=== PATIENT | male | born 1950 | race Caucasian/White ===

== ENCOUNTER 2018-07-04 11:32 | Inpatient (IN) ==
[2018-07-04] MEDS ORDERED: Isovue-370 500 ML INFUS..BTL IV ONE (11:50)
[2018-07-04] MEDS ORDERED: Piperacillin/Tazobactam 3.375 GM in 0.9 % Sodium Chloride Mini Bag 100 ML IVPB ONE (11:54)
--- NOTE | 2018-07-04 11:57 | Emergency Department Note ---
Disposition Clinical Impression: Hyponatremia, Alcohol use Pneumonia Qualifiers: Pneumonia type: due to unspecified organism Laterality: right Lung location: middle lobe of lung Qualified Code(s): J18.1 - Lobar pneumonia, unspecified organism Chest pain Qualifiers: Chest pain type: unspecified Qualified Code(s): R07.9 - Chest pain, unspecified Disposition: Admitted As Inpatient Condition: Fair Forms: ED Satisfaction Letter, Work/School Release Time of Disposition: 14:05 General Adult HPI - General Chief complaint: ED Abdominal Pain Stated complaint: "Chest pain,cough" Time Seen by Provider: 07/04/18 11:40 Nursing Notes Reviewed: Yes Vital Signs Reviewed: Yes - History of Present Illness HPI Narrative: 68-year-old male presents from home for evaluation of pain at the subxiphoid and subcostal margins. This radiates up his right axillary line. Worse with coughing. He has a productive cough with brown/green sputum. Patient underwent an EGD 4 days ago which revealed a Schatzki's ring which was dilated. Patient did have a slight cough before the procedure. This cough is persistent and worsened with the addition of the sharp stabbing subcostal pain which started after the procedure. Patient's called gastroenterology yesterday who advised to come to emergency department for an x-ray. He presented today for this evaluation as his pain is worsening. Habits: Everyday EtOH - 6-12 beers/day. Last drink was prior to the procedure. ROS: Positive: As above Negative: Fever, chills, nausea, vomiting, palpitations, unusual back pain, abdominal pain, changes in bowel or bladder habits Pain Scale: 10 - Related Data Home Medications Medication Instructions Recorded Confirmed Fish Oil/Dha/Epa [Fish Oil 1,200 1 cap PO DAILY 09/11/17 07/04/18 mg Fish Oil] Fluticasone Propionate Nasal 1 spr NS DAILY PRN 09/11/17 07/04/18 [Flonase] Folic Acid 1 mg PO DAILY 09/11/17 07/04/18 Loperamide [Imodium] 2 cap PO QID PRN 09/11/17 07/04/18 Loratadine [Allergy Relief] 10 mg PO DAILY 09/11/17 07/04/18 Multivitamin [One Daily Essential] 1 tab PO DAILY 09/11/17 07/04/18 NIFEdipine [Nifedipine ER] 30 mg PO BID 09/11/17 07/04/18 OxyCODONE/APAP 7.5/325 [Percocet 1 each PO Q6HR PRN 09/11/17 07/04/18 7.5/325 MG] Pantoprazole Sodium [Protonix] 80 mg PO DAILY 04/06/18 07/04/18 Allergies Allergy/AdvReac Type Severity Reaction Status Date / Time Varenicline [From Chantix] Allergy Mild Itching Verified 04/06/18 10:30 cephalexin [From Keflex] AdvReac Mild Diarrhea Verified 04/06/18 10:30 Cziarps-Dgw-Non Reductase AdvReac Mild Nausea Verified 04/06/18 10:30 Inhibitor [Statins] All systems ED: reviewed and negative except as stated. Review of Systems: As Per HPI Past Medical History - Past Medical History Medical history: Reports: GERD, GI bleed, hyperlipidemia, hypertension Surgical history: Reports: cholecystectomy, herniorrhaphy Psychiatric history: Reports: no psych history - Social History Smoking Status: Current every day smoker Smokeless Tobacco Status: No Alcohol use: Reports: heavy, recent Drug use: Reports: none Physical Exam Vital Signs Reviewed General: Patient is alert, oriented, and in moderate distress from his lower chest discomfort. Head: atraumatic, normocephalic Eye: normal appearance, no scleral icterus, no conjunctival injection ENT: mucous membranes moist, normal external ear exam Neck: normal inspection, trachea midline, full ROM Chest: normal inspection, symmetric chest rise. No palpable crepitus. Respiratory: Good respiratory effort. Bilateral breath sounds are clear without wheezing, crackles, or rhonchi. Cardiovascular: Regular rate and rhythm. No clicks, rubs, gallops, or murmors. Normal heart sounds. Bilateral radial pulses equal to palpation. Abdomen: Bowel sounds present normoactive x-4 quadrants. Abdomen is soft, nondistended, and nontender. No guarding or rebound. Musculoskeletal: Spontaneously moving all extremities. Skin: warm, dry, intact. Neuro: Alert and oriented x4. Sensation light touch intact. Psych: Patient's affect is appropriate for situation. Course Course Narrative: Patient had dilation of Schatzki's ring via EGD at this facility 4 days ago. Concern for possible esophageal perforation, pneumomediastinum. Also concern for possible dissection or aneurysm. Will do upright chest x-ray stat followed by CTA chest, abdomen, pelvis. Will empirically cover with vancomycin and Zosyn ; adding vancomycin because patient also has a productive cough. Blood pressure in bilateral upper extremities show a 20 point systolic difference. Bedside portable chest x-ray shows no free air under the diaphragm or widening mediastinum. Portable chest x-ray shows right-sided pneumonia. CTA chest, abdomen, pelvis show no acute vascular findings; redemonstration of right middle lobe pneumonia. Patient has mild hyponatremia. Patient's pain poorly controlled with repeated doses of Dilaudid. He is beginning to get restless; will provide 1mg IV Ativan. Abdomen/Pelvis CTA 07/04/18 11:50 IMPRESSION: 1. No acute vascular findings in the chest, abdomen, or pelvis. Specifically, no findings of central pulmonary embolism or aortic dissection. 2. Right middle lobe pneumonia with minimal involvement of the adjacent right lower lobe. This potentially could be related to aspiration given some retained material in the esophagus. 3. Circumferential wall thickening in the mid to distal thoracic esophagus potentially due to esophagitis. Please correlate with the report from the reported recent endoscopy. 4. Trace right pleural effusion. 5. Trace pelvic ascites, potentially reactive. 6. Mild to moderate bronchial wall thickening potentially due to reactive airways disease or bronchitis. D/ / Med Solorio MD / Med Solorio MD Interpreting Provider: Med Solorio MD Chest CTA 07/04/18 11:50 IMPRESSION: 1. No acute vascular findings in the chest, abdomen, or pelvis. Specifically, no findings of central pulmonary embolism or aortic dissection. 2. Right middle lobe pneumonia with minimal involvement of the adjacent right lower lobe. This potentially could be related to aspiration given some retained material in the esophagus. 3. Circumferential wall thickening in the mid to distal thoracic esophagus potentially due to esophagitis. Please correlate with the report from the reported recent endoscopy. 4. Trace right pleural effusion. 5. Trace pelvic ascites, potentially reactive. 6. Mild to moderate bronchial wall thickening potentially due to reactive airways disease or bronchitis. D/ / Med Solorio MD / Med Solorio MD Interpreting Provider: Med Solorio MD Chest X-Ray 07/04/18 11:50 IMPRESSION: 1. New right basilar airspace disease concerning for pneumonia rather than pulmonary contusion. Recommend chest radiograph in 8 weeks to confirm resolution. D/ / Hollis Garcia MD / Hollis Garcia MD Interpreting Provider: Hollis Garcia MD Vital Signs Temperature 98.2 F 07/04/18 11:34 Pulse Rate 106 07/04/18 11:34 Respiratory Rate 18 07/04/18 11:34 Blood Pressure 144/81 07/04/18 11:34 O2 Sat by Pulse Oximetry 96 07/04/18 11:34 Temperature 98.2 F 07/04/18 12:01 Pulse Rate 110 07/04/18 13:30 Respiratory Rate 18 07/04/18 13:30 Blood Pressure 148/78 07/04/18 13:30 O2 Sat by Pulse Oximetry 94 07/04/18 13:30 Oxygen Delivery Oxygen Delivery Nasal Cannula Medical Decision Making - Lab Data Result diagrams: 07/04/18 11:54 07/04/18 11:54 Lab Results 07/04/18 07/04/18 07/04/18 Range/Units 11:54 11:54 11:54 WBC 15.6 H (4.3-11.1) K/mcL RBC 3.59 L (4.19-5.50) M/mcL Hgb 11.9 L (12.9-16.9) g/dL Hct 34.1 L (37.5-50.1) % MCV 95.0 (83.0-100.0) fL MCH 33.1 (28.0-33.3) pg MCHC 34.9 (31.6-35.5) g/dL RDW 12.1 (11.5-14.5) % Plt Count 347 (140-400) K/mcL MPV 8.6 L (9.4-12.4) fL Immature Gran % 0.4 (0-4) % Seg Neutrophils % 75.9 % Lymphocytes % 13.3 % Monocytes % 9.7 % Eosinophils % 0.5 % Basophils % 0.2 % Neutrophils # 11.8 H (1.6-8.9) K/mcL Lymphocytes # 2.1 (0.6-4.6) K/mcL Monocytes # 1.5 H (0.0-1.3) K/mcL Eosinophils # 0.1 (0.0-0.6) K/mcL Basophils # 0.0 (0.0-0.2) K/mcL PT 11.9 (9.4-12.1) Seconds INR 1.1 Sodium 129 L (136-145) mEq/L Potassium 3.7 (3.5-5.1) mEq/L Chloride 93 L (98-107) mEq/L Carbon Dioxide 26 (23-29) mEq/L BUN 8 (8-23) mg/dL Creatinine 0.61 L (0.70-1.30) mg/dL Est GFR ( Amer) > 60 (> 60) Est GFR (Non-Af Amer) > 60 (> 60) BUN/Creatinine Ratio 13 (6-26) Glucose 116 H (70-105) mg/dL Calculated Osmolality 267 L (280-300) Lactic Acid (0.5-2.2) mmol/L Calcium 9.2 (8.6-10.3) mg/dL Total Bilirubin 0.8 (0.3-1.0) mg/dL Direct Bilirubin 0.3 H (0.0-0.2) mg/dL Indirect Bilirubin 0.5 (0.0-1.2) mg/dL AST 15 (13-39) Units/L ALT 12 (7-52) Units/L Alkaline Phosphatase 66 (34-104) Units/L Troponin I 0.03 (< 0.04) ng/mL Serum Total Protein 7.2 (6.4-8.9) g/dL Albumin 3.9 (3.5-5.7) g/dL Globulin 3.3 (2.4-3.5) g/dL Albumin/Globulin Ratio 1.2 (1.1-2.2) Lipase 4 L (11-82) Units/L 07/04/18 Range/Units 12:44 WBC (4.3-11.1) K/mcL RBC (4.19-5.50) M/mcL Hgb (12.9-16.9) g/dL Hct (37.5-50.1) % MCV (83.0-100.0) fL MCH (28.0-33.3) pg MCHC (31.6-35.5) g/dL RDW (11.5-14.5) % Plt Count (140-400) K/mcL MPV (9.4-12.4) fL Immature Gran % (0-4) % Seg Neutrophils % % Lymphocytes % % Monocytes % % Eosinophils % % Basophils % % Neutrophils # (1.6-8.9) K/mcL Lymphocytes # (0.6-4.6) K/mcL Monocytes # (0.0-1.3) K/mcL Eosinophils # (0.0-0.6) K/mcL Basophils # (0.0-0.2) K/mcL PT (9.4-12.1) Seconds INR Sodium (136-145) mEq/L Potassium (3.5-5.1) mEq/L Chloride (98-107) mEq/L Carbon Dioxide (23-29) mEq/L BUN (8-23) mg/dL Creatinine (0.70-1.30) mg/dL Est GFR ( Amer) (> 60) Est GFR (Non-Af Amer) (> 60) BUN/Creatinine Ratio (6-26) Glucose (70-105) mg/dL Calculated Osmolality (280-300) Lactic Acid 0.9 (0.5-2.2) mmol/L Calcium (8.6-10.3) mg/dL Total Bilirubin (0.3-1.0) mg/dL Direct Bilirubin (0.0-0.2) mg/dL Indirect Bilirubin (0.0-1.2) mg/dL AST (13-39) Units/L ALT (7-52) Units/L Alkaline Phosphatase (34-104) Units/L Troponin I (< 0.04) ng/mL Serum Total Protein (6.4-8.9) g/dL Albumin (3.5-5.7) g/dL Globulin (2.4-3.5) g/dL Albumin/Globulin Ratio (1.1-2.2) Lipase (11-82) Units/L Attestation Statement - Attestation Attestation: I, Ilir Cisneros DO, examined this patient [id number] and my medical decision-making was reviewed with Dr. Jarred Tate, Resident Physician. I agree with the documented findings, disposition and treatment plan as described except to the extent set forth below. Please see my progress notes for details.
[2018-07-04] MEDS ORDERED: *HR* HYDROmorphone (PF) 1 MG/ML SYRINGE IVP STA (12:00)
[2018-07-04] MEDS ORDERED: Pantoprazole 80 MG in 0.9 % Sodium Chloride 50 ML IVPB ONE (12:02)
--- NOTE | 2018-07-04 12:02 | Emergency Department Note ---
Disposition Clinical Impression: Pneumonia, Chest pain, Hyponatremia, Alcohol use Disposition: Admitted As Inpatient Condition: Fair Referrals: Denise Anton MD [Non-Partnered Physician] - Forms: ED Satisfaction Letter, Work/School Release Time of Disposition: 14:06 General Adult HPI - General Chief complaint: ED Abdominal Pain Stated complaint: "Chest pain,cough" Time Seen by Provider: 07/04/18 11:40 - History of Present Illness Pain Scale: 10 - Related Data Home Medications Medication Instructions Recorded Confirmed Fish Oil/Dha/Epa [Fish Oil 1,200 1 cap PO DAILY 09/11/17 04/06/18 mg Fish Oil] Fluticasone Propionate Nasal 1 spr NS DAILY PRN 09/11/17 04/06/18 [Flonase] Folic Acid 1 mg PO DAILY 09/11/17 04/06/18 Loperamide [Imodium] 2 cap PO QID 09/11/17 04/06/18 Loratadine [Allergy Relief] 10 mg PO DAILY 09/11/17 04/06/18 Multivitamin [One Daily Essential] 1 tab PO DAILY 09/11/17 04/06/18 NIFEdipine [Nifedipine ER] 30 mg PO BID 09/11/17 04/06/18 OxyCODONE/APAP 7.5/325 [Percocet 1 each PO Q6HR PRN 09/11/17 04/06/18 7.5/325 MG] Pantoprazole Sodium [Protonix] 80 mg PO DAILY 04/06/18 04/06/18 Allergies Allergy/AdvReac Type Severity Reaction Status Date / Time Varenicline [From Chantix] Allergy Mild Itching Verified 04/06/18 10:30 cephalexin [From Keflex] AdvReac Mild Diarrhea Verified 04/06/18 10:30 [id number] Reductase AdvReac Mild Nausea Verified 04/06/18 10:30 Inhibitor [Statins] Past Medical History - Past Medical History Medical history: Reports: GERD, GI bleed, hyperlipidemia, hypertension Surgical history: Reports: cholecystectomy, herniorrhaphy Psychiatric history: Reports: no psych history - Social History Smoking Status: Current every day smoker Smokeless Tobacco Status: No Alcohol use: Reports: heavy, recent Drug use: Reports: none Course Vital Signs Temperature 98.2 F 07/04/18 11:34 Pulse Rate 106 07/04/18 11:34 Respiratory Rate 18 07/04/18 11:34 Blood Pressure 144/81 07/04/18 11:34 O2 Sat by Pulse Oximetry 96 07/04/18 11:34 Temperature 100.8 F H 07/04/18 14:05 Pulse Rate 108 07/04/18 14:05 Respiratory Rate 16 07/04/18 14:05 Blood Pressure 122/90 07/04/18 14:05 O2 Sat by Pulse Oximetry 97 07/04/18 14:05 Oxygen Delivery Oxygen Delivery Nasal Cannula Medical Decision Making - Lab Data Result diagrams: 07/04/18 11:54 07/04/18 11:54 Lab Results 07/04/18 07/04/18 07/04/18 Range/Units 11:54 11:54 11:54 WBC 15.6 H (4.3-11.1) K/mcL RBC 3.59 L (4.19-5.50) M/mcL Hgb 11.9 L (12.9-16.9) g/dL Hct 34.1 L (37.5-50.1) % MCV 95.0 (83.0-100.0) fL MCH 33.1 (28.0-33.3) pg MCHC 34.9 (31.6-35.5) g/dL RDW 12.1 (11.5-14.5) % Plt Count 347 (140-400) K/mcL MPV 8.6 L (9.4-12.4) fL Immature Gran % 0.4 (0-4) % Seg Neutrophils % 75.9 % Lymphocytes % 13.3 % Monocytes % 9.7 % Eosinophils % 0.5 % Basophils % 0.2 % Neutrophils # 11.8 H (1.6-8.9) K/mcL Lymphocytes # 2.1 (0.6-4.6) K/mcL Monocytes # 1.5 H (0.0-1.3) K/mcL Eosinophils # 0.1 (0.0-0.6) K/mcL Basophils # 0.0 (0.0-0.2) K/mcL PT 11.9 (9.4-12.1) Seconds INR 1.1 Sodium 129 L (136-145) mEq/L Potassium 3.7 (3.5-5.1) mEq/L Chloride 93 L (98-107) mEq/L Carbon Dioxide 26 (23-29) mEq/L BUN 8 (8-23) mg/dL Creatinine 0.61 L (0.70-1.30) mg/dL Est GFR ( Amer) > 60 (> 60) Est GFR (Non-Af Amer) > 60 (> 60) BUN/Creatinine Ratio 13 (6-26) Glucose 116 H (70-105) mg/dL Calculated Osmolality 267 L (280-300) Lactic Acid (0.5-2.2) mmol/L Calcium 9.2 (8.6-10.3) mg/dL Total Bilirubin 0.8 (0.3-1.0) mg/dL Direct Bilirubin 0.3 H (0.0-0.2) mg/dL Indirect Bilirubin 0.5 (0.0-1.2) mg/dL AST 15 (13-39) Units/L ALT 12 (7-52) Units/L Alkaline Phosphatase 66 (34-104) Units/L Troponin I 0.03 (< 0.04) ng/mL Serum Total Protein 7.2 (6.4-8.9) g/dL Albumin 3.9 (3.5-5.7) g/dL Globulin 3.3 (2.4-3.5) g/dL Albumin/Globulin Ratio 1.2 (1.1-2.2) Lipase 4 L (11-82) Units/L 07/04/ Range/Units 12:44 WBC (4.3-11.1) K/mcL RBC (4.19-5.50) M/mcL Hgb (12.9-16.9) g/dL Hct (37.5-50.1) % MCV (83.0-100.0) fL MCH (28.0-33.3) pg MCHC (31.6-35.5) g/dL RDW (11.5-14.5) % Plt Count (140-400) K/mcL MPV (9.4-12.4) fL Immature Gran % (0-4) % Seg Neutrophils % % Lymphocytes % % Monocytes % % Eosinophils % % Basophils % % Neutrophils # (1.6-8.9) K/mcL Lymphocytes # (0.6-4.6) K/mcL Monocytes # (0.0-1.3) K/mcL Eosinophils # (0.0-0.6) K/mcL Basophils # (0.0-0.2) K/mcL PT (9.4-12.1) Seconds INR Sodium (136-145) mEq/L Potassium (3.5-5.1) mEq/L Chloride (98-107) mEq/L Carbon Dioxide (23-29) mEq/L BUN (8-23) mg/dL Creatinine (0.70-1.30) mg/dL Est GFR ( Amer) (> 60) Est GFR (Non-Af Amer) (> 60) BUN/Creatinine Ratio (6-26) Glucose (70-105) mg/dL Calculated Osmolality (280-300) Lactic Acid 0.9 (0.5-2.2) mmol/L Calcium (8.6-10.3) mg/dL Total Bilirubin (0.3-1.0) mg/dL Direct Bilirubin (0.0-0.2) mg/dL Indirect Bilirubin (0.0-1.2) mg/dL AST (13-39) Units/L ALT (7-52) Units/L Alkaline Phosphatase (34-104) Units/L Troponin I (< 0.04) ng/mL Serum Total Protein (6.4-8.9) g/dL Albumin (3.5-5.7) g/dL Globulin (2.4-3.5) g/dL Albumin/Globulin Ratio (1.1-2.2) Lipase (11-82) Units/L Attestation Statement - Attestation Attestation: I, Ilir Cisneros DO, examined this patient [id number] and my medical decision-making was reviewed with Dr. Jarred Tate, Resident Physician. I agree with the documented findings, disposition and treatment plan as described except to the extent set forth below. Please see my progress notes for details. 68-year-old male presents to the emergency room with progressively worsening pain in his chest. Patient had an EGD performed on by gastroenterology. He had pain that he describes slightly before. Progressively his become worse after the dilation of the Schatzki's ring. Patient denies any other trauma or injury. He has been taking his medications as prescribed. He is advised to go to the emergency room on Thursday but did not do so. Patient is now here in the emergency room with progressively worsening pain tachycardia and discomfort. Initial concern because of his medical history as well as the most recent surgical intervention is perforation. Patient is describing severe pain that radiates into his back. Also concerned about dissection and aneurysm. Patient has chest discomfort and pain that is worse with inspiration is positional. Cardiac etiology is also on the differential. Chest x-ray was ordered immediately in the upright chest x-ray does not show any free air underneath the diaphragm or visible signs of pneumomediastinum. Bilateral blood pressures were collected by the nursing staff there is a 20 point deficit between the right upper extremity and left upper extremity. Immediate CT angiography of the chest abdomen and pelvis will be ordered at this time to rule out dissection or aneurysm. Fluids pain medication nausea medication will be provided immediately. Patient will have EKG CT angiography was CBC chemistry troponin and BNP blood cultures lactic acid ordered at this time. First doses of IV vancomycin and Zosyn will be provided the patient with concern for possible perforation. Definitive management will be established once imaging modalities are resulted. The patient was sent over for CT angiography the chest abdomen and pelvis before the labs were collected. I reviewed labs from September 2017 that showed normal renal function. He has not had any labs since then but in light of the situation as well as the presentation and the asymmetric blood pressures the patient will be sent for definitive imaging and fluids will be provided. Disposition will most likely be admission or transfer dependent upon the findings. See detailed documentation of physical exam, medical intervention, medical decision-making and disposition in the resident physician's note. On examination his lungs do appear to be clear there is no crepitus to the chest wall there is no crackles noted on exam there is no crunching sensation noted on auscultation of the heart. Heart is tachycardic but regular. Abdomen is soft does have tenderness bilateral in the epigastrium. He has no signs or rash lesion or other trauma noted to the chest wall or abdomen this time. Disposition pending the full workup and treatment course. Pulses in the right upper and left upper extremities appear to be symmetrical in the radial distributions with no asymmetry noted at this time. We will continue to monitor closely and disposition is determined. 1205 Patient also discloses that he has a significant drinking history he stopped prior to EGD and has not drank since then. There is also concerned for esophageal varices at this point considering he did have hemoptysis that he described prior to the back and some intermittent symptoms since then. Patient will be given Protonix at this time. Octreotide will be added on after the imaging modality is completed. 1400 CT angiography the chest and abdomen does not show any acute vascular related etiology. Patient has what appears to be right middle and right lower lobe pneumonia with concern for possible aspiration since there is still fluidthe esophagus. This is consistent with the patient's most recent dilation secondary to Schatzki's ring. He has not had any emesis here. He is describing pain in his chest wall still this time. Patient is a heavy drinker so Ativan as well as repeat doses of pain medication will be ordered. Repeat EKGs were negative at this time and no signs of ischemia or myocardial infarction-like presentation. His troponin is negative and the patient has had all the symptoms for greater than 4 days. Patient is clinically stable but still having describes symptoms of pain secondary to the pneumonia. He will be admitted for antibiotic regiment and pain control. Hospitalist was contacted no other specific recommendations or concerns noted at this time.
[2018-07-04 12:07] LABS: Hematocrit 34.1 % (37.5-50.1); Hemoglobin 11.9 g/dL (12.9-16.9); Red Blood Count 3.59 M/mcL (4.19-5.50)
[2018-07-04 12:08] LABS: Basophils % 0.2 %; Eosinophils # 0.1 K/mcL (0.0-0.6); Eosinophils % 0.5 %; Immature Granulocytes % 0.4 % (0-4); Lymphocytes # 2.1 K/mcL (0.6-4.6); Lymphocytes % 13.3 %; Mean Corpuscular HGB Conc 34.9 g/dL (31.6-35.5); Mean Corpuscular Hemoglobin 33.1 pg (28.0-33.3); Mean Platelet Volume 8.6 fL (9.4-12.4); Monocytes # 1.5 K/mcL (0.0-1.3); Monocytes % 9.7 %; Neutrophils # 11.8 K/mcL (1.6-8.9); Platelet Count 347 K/mcL (140-400); Red Cell Distribution Width 12.1 % (11.5-14.5); Segmented Neutrophils % 75.9 %
[2018-07-04 12:15] LABS: INR 1.1; Prothrombin Time 11.9 Seconds (9.4-12.1)
[2018-07-04 12:31] LABS: Alanine Aminotransferase 12 Units/L (7-52); Albumin 3.9 g/dL (3.5-5.7); Albumin/Globulin Ratio 1.2 (1.1-2.2); Alkaline Phosphatase 66 Units/L (34-104); Aspartate Amino Transferase 15 Units/L (13-39); BUN/Creatinine Ratio 13 (6-26); Bilirubin,Direct 0.3 mg/dL (0.0-0.2); Bilirubin,Indirect 0.5 mg/dL (0.0-1.2); Bilirubin,Total 0.8 mg/dL (0.3-1.0); Blood Urea Nitrogen 8 mg/dL (8-23); Calcium 9.2 mg/dL (8.6-10.3); Carbon Dioxide 26 mEq/L (23-29); Chloride 93 mEq/L (98-107); Globulin 3.3 g/dL (2.4-3.5); Glucose 116 mg/dL (70-105); Lipase 4 Units/L (11-82); Osmolality,Calculated 267 (280-300); Potassium 3.7 mEq/L (3.5-5.1); Sodium 129 mEq/L (136-145); Total Protein 7.2 g/dL (6.4-8.9); eGFR For Non-African Americans > 60 (> 60)
[2018-07-04 12:32] LABS: Troponin I 0.03 ng/mL (< 0.04)
[2018-07-04] MEDS ORDERED: THIAMINE IVPB ONE (12:37)
[2018-07-04] MEDS ORDERED: FOLIC ACID IVPB ONE (12:37)
[2018-07-04] MEDS ORDERED: SODIUM CHLORIDE 0.9% IVPB ONE (12:37)
[2018-07-04] MEDS ORDERED: *HR* HYDROmorphone (PF) 1 MG/ML SYRINGE IVP ONE (13:08)
[2018-07-04] MEDS ORDERED: *HR* LORazepam 1 MG TABLET PO ONE (13:55)
[2018-07-04] MEDS ORDERED: Naloxone 0.4 MG/ML INJ IVP PRN (14:15)
[2018-07-04] MEDS ORDERED: Fluticasone Propionate Nasal 50 MCG/SPRAY BOTTLE NS PRN (14:19)
[2018-07-04] MEDS ORDERED: *HR* LORazepam 2 MG/ML VIAL IVP PRN (14:24)
[2018-07-04] MEDS ORDERED: Aminoglycoside Consult 1 EACH MC ONE (14:59)
[2018-07-04 15:14] LABS: Ethanol < 10 mg/dL (Less than 10)
--- NOTE | 2018-07-04 15:43 | Internal Med History&Physical ---
Date of Encounter: 07/04/18 Time of Encounter: 15:00 Internal Medicine - H&P: HPI Chief complaint: Coughing and right sided chest pain History of present illness: Mr. Stewart is a 68 year old male with pmh of alcohol abuse, GERD, hyperlipidemia, hypertension presenting with complaints of coughin since last week thursday which has gotten worse and is accompanied with right sided chest pain. He notes that the coughing started on thursday night but has progressively gotten worse since after the EGD; a schatzki's ring was found on EGD and dilation was performed. He complains of producing greenish brown phlegm as well. He also complains of right sided chest pain davin he has had since the procedure and has been getting progressively more severe over the last 24 hours. The pain is intermittent stabbing and radiating from the mid sternal area to the back and that's the main reason he came to the ER today. Pain is worse on inspiration and with coughing. In the ER, a chest xray, CT chest , abdomen and pelvis were performed showing a right middle lobe pneumonia and no evidence of free air in the mediastinum. He is being admitted for further management Past Med Surg Social Fam HX - Past Medical History Medical history: GERD, GI bleed, hyperlipidemia, hypertension Additional medical history: Clark dx, BPH, chronic elbow/shoulder pain, hx of alcoholism pancreatitis, hx of colon polyps Psychiatric history: no psych history - Past Surgical History Surgical History: cholecystectomy, herniorrhaphy Additional surgical history: right foot as a child, bilateral inguinal hernia repair-2008, sinus surgery-2009, EDG-04/2011, colonscopy w/ polypectomy-2007, 2014, TURP-07/2014, PE tubes-05/2015 - Social History Smoking Status: Current every day smoker Smokeless Tobacco Status: No Alcohol use: heavy, recent Drug use: none - Family History Mother Living Status: Age at : 84 Cause of : DM, alzheimers Internal Medicine - H&P: Meds Fish Oil/Dha/Epa [Fish Oil 1,200 mg Fish Oil] 1 cap PO DAILY 09/11/17 [History] Fluticasone Propionate Nasal [Flonase] 1 spr NS DAILY PRN 09/11/17 [History] Folic Acid 1 mg PO DAILY 09/11/17 [History] Loperamide [Imodium] 2 cap PO QID PRN 09/11/17 [History] Loratadine [Allergy Relief] 10 mg PO DAILY 09/11/17 [History] Multivitamin [One Daily Essential] 1 tab PO DAILY 09/11/17 [History] NIFEdipine [Nifedipine ER] 30 mg PO BID 09/11/17 [History] OxyCODONE/APAP 7.5/325 [Percocet 7.5/325 MG] 1 each PO Q6HR PRN 09/11/17 [ History] Pantoprazole Sodium [Protonix] 80 mg PO DAILY 04/06/18 [History] 3 Allergy/AdvReac Type Severity Reaction Status Date / Time Varenicline [From Chantix] Allergy Mild Itching Verified 04/06/18 10:30 cephalexin [From Keflex] AdvReac Mild Diarrhea Verified 04/06/18 10:30 Cqvleln-Kyj-Ltz Reductase AdvReac Mild Nausea Verified 04/06/18 10:30 Inhibitor [Statins] All Systems PM: A 10-system review of systems was performed and is negative for pertinent findings except as documented above in the HPI. - Constitutional Constitutional: no chills, no fever(s), no night sweats - EENT Eyes: no change in vision, no discharge, no pain, no photophobia Ears: no ear discharge, no ear pain, no tinnitus Nose, mouth and throat: no dysphagia, no nasal discharge, no neck pain, no sore throat - Cardiovascular Cardiovascular ROS IM: no chest pain, no diaphoresis, no dyspnea, no lightheadedness, no palpitations, no syncope - Respiratory Respiratory: cough, dyspnea, pain with cough, no wheezing, no excessive phlegm production - Gastrointestinal Gastrointestinal: no abdominal pain, no diarrhea, no hematemesis, no hematochezia, no melena, no nausea, no vomiting - Musculoskeletal Musculoskeletal ROS IM: no numbness, no tingling - Integumentary Integumentary IM: no rash, no unusual bruising - Neurological Neurological ROS: no confusion, no convulsions, no focal weakness, no numbness, no tingling, no tremor(s) - Hematologic/Lymphatic Hematologic/Lymphatic: no easy bruising - Constitutional Vitals: Temp Pulse Resp BP Pulse Ox 100.8 F H 108 16 122/90 97 07/04/18 14:05 07/04/18 14:05 07/04/18 14:05 07/04/18 14:05 07/04/18 14:05 Exam: moderate distress from right sided chest pain - Head Head exam: Present: atraumatic, normocephalic - Eye Eye exam: Present: PERRL, conjuntiva pink, sclera anicteric Pupils: Present: PERRL - Neck Neck exam general surgery: Present: supple, trachea midline. Absent: lymphadenopathy - Respiratory Respiratory exam: Present: CTAB. Absent: accessory muscle use, rales, rhonchi, wheezes - Cardiovascular Cardiovascular exam: Present: RRR, +S1, +S2. Absent: diastolic murmur, gallop, rubs, systolic murmur - GI/Abdominal GI/Abdominal exam: Present: normal bowel sounds, soft, no peritoneal signs. Absent: distended, tenderness - Extremities Exam Extremities exam: Present: warm, radial pulses palpable and symmetrical. Absent : calf tenderness, cyanotic, pedal edema - Neurological Exam Neurological exam: Present: CN II-XII intact, oriented X3, no focal deficits. Absent: pronater drift, facial droop, speech deficit - Skin Skin exam: Present: dry, intact Internal Med - H&P Results - Labs CBC & Chem 7: 07/04/18 11:54 07/04/18 11:54 - Assessment and plan (1) Sepsis Current Visit: Yes Status: Acute Assessment and plan: Patient came in febrile, tachycardic and with a leukocytosis of 15. chest xray shows evidence of right middle lobe pneumonia Likely secondary to aspiration pneumonia from alcohol abuse vs s/p EGD. Obtain blood cultures, urine streptocococcus and legionella antigen Will start on vanc and unasyn . Qualifiers: Sepsis type: sepsis due to unspecified organism Qualified Code(s): A41.9 - Sepsis, unspecified organism (2) Aspiration pneumonia Current Visit: Yes Status: Acute Assessment and plan: Patient came in febrile, tachycardic and with a leukocytosis of 15. chest xray shows evidence of right middle lobe pneumonia Likely secondary to aspiration pneumonia from alcohol abuse vs s/p EGD. Obtain blood cultures, urine streptocococcus and legionella antigen Will start on vanc and unasyn . Qualifiers: Lung location: middle lobe of lung Qualified Code(s): J69.0 - Pneumonitis due to inhalation of food and vomit (3) Chest pain Current Visit: Yes Status: Acute Assessment and plan: Likely pleuritc from pneumonia. CT chest and abdomen shows no evidence of free air or suggestion of esophageal perforation Gi has however been consulted in light of persistent right sided chest pain. CXR PA and lateral in am. GI has recommended keeping patient NPO in case of possible procedure Qualifiers: Chest pain type: chest pain on breathing Qualified Code(s): R07.1 - Chest pain on breathing; R07.81 - Pleurodynia (4) Hyponatremia Current Visit: Yes Status: Acute Assessment and plan: Will start on IV fluids with normal saline (5) Alcohol abuse Current Visit: Yes Status: Acute Assessment and plan: Consumes alcohol daily. Place on CIWA protocol and monitor for signs of withdrawal (6) DVT prophylaxis Current Visit: Yes Status: Acute Assessment and plan: Heparin sc - Time Spent With Patient Total time spent is greater than 50% in coordination of care (as documented) at patient's floor/unit and/or counseling patient:
[2018-07-04] MEDS ORDERED: Acetaminophen 325 MG TABLET PO PRN (15:44)
[2018-07-04] MEDS ORDERED: GI Cocktail 40 ML EACH PO ONE (15:48)
[2018-07-04] MEDS: 0.9 % Sodium Chloride 1,000 ML IVC SCH (16:34)
[2018-07-04] MEDS: *HR* Morphine 2 MG/ML SYRINGE IVP PRN ×2 (16:35→20:16)
[2018-07-04] MEDS: Thiamine (B-1) 100 MG, Folic Acid 1 MG, MVI, adult with vitamin K 10 ML in 0.9 % Sodi... IVPB SCH (17:23)
[2018-07-04] MEDS: Ampicillin/Sulbactam 3,000 MG in 0.9 % Sodium Chloride Mini Bag 100 ML IVPB SCH (20:01)
[2018-07-04] MEDS: NIFEdipine XL (24 HR) 30 MG TAB.ER.24 PO SCH (20:15)
[2018-07-04 21:52] LABS: Bilirubin,Urine Negative (Negative); Blood,Urine Negative (Negative); Clarity,Urine Clear (Clear); Color,Urine Yellow (Yellow); Glucose,Urine (UA) Normal (Normal); Ketones,Urine Trace mg/dL (Negative); Leukocyte Esterase,Urine Negative (Negative); Nitrite,Urine Negative (Negative); PH,Urine 7.5 pH Units (5.0-8.0); Protein,Urine Negative (Neg-Trace); Specific Gravity,Urine 1.022 (1.010-1.025); Urobilinogen,Urine Normal (Normal)
[2018-07-04] MEDS ORDERED: OXYCODONE Oral CONC 10 MG/0.5 ML ORAL.SYG SL PRN (23:40)
[2018-07-05] MEDS: Ipratropium/Albuterol Neb 3 ML IH SCH ×7 (00:04→23:07)
[2018-07-05] MEDS: 0.9 % Sodium Chloride 1,000 ML IVC SCH (00:23)
[2018-07-05] MEDS: Pantoprazole 40 MG VIAL IVP SCH ×4 (00:23→17:03)
[2018-07-05] MEDS: *HR* Morphine 2 MG/ML SYRINGE IVP PRN ×2 (00:23→04:38)
[2018-07-05] MEDS: Ampicillin/Sulbactam 3,000 MG in 0.9 % Sodium Chloride Mini Bag 100 ML IVPB SCH ×4 (01:29→22:43)
[2018-07-05 04:26] LABS: Basophils % 0.3 %; Eosinophils # 0.2 K/mcL (0.0-0.6); Eosinophils % 1.4 %; Hemoglobin 11.3 g/dL (12.9-16.9); Immature Granulocytes % 0.4 % (0-4); Lymphocytes % 14.3 %; Mean Corpuscular HGB Conc 34.2 g/dL (31.6-35.5); Mean Corpuscular Hemoglobin 32.9 pg (28.0-33.3); Mean Corpuscular Volume 96.2 fL (83.0-100.0); Mean Platelet Volume 9.5 fL (9.4-12.4); Monocytes # 1.4 K/mcL (0.0-1.3); Monocytes % 9.8 %; Neutrophils # 10.3 K/mcL (1.6-8.9); Platelet Count 304 K/mcL (140-400); Red Blood Count 3.43 M/mcL (4.19-5.50); Red Cell Distribution Width 12.3 % (11.5-14.5); Segmented Neutrophils % 73.8 %
[2018-07-05 04:47] LABS: BUN/Creatinine Ratio 11 (6-26); Blood Urea Nitrogen 6 mg/dL (8-23); Calcium 8.6 mg/dL (8.6-10.3); Carbon Dioxide 24 mEq/L (23-29); Chloride 97 mEq/L (98-107); Glucose 84 mg/dL (70-105); Magnesium 1.9 mg/dL (1.6-2.6); Osmolality,Calculated 267 (280-300); Phosphorous 2.7 mg/dL (2.7-4.5); Potassium 3.2 mEq/L (3.5-5.1); Sodium 130 mEq/L (136-145); eGFR For Non-African Americans > 60 (> 60)
--- NOTE | 2018-07-05 07:22 | Internal Med Progress Note ---
Hospitalist Progress Note - Encounter Date of Encounter: 07/05/18 Time of Encounter: 07:00 - Exam Vitals: Temp Pulse Resp BP Pulse Ox 99.8 F H 110 20 124/62 94 07/05/18 04:28 07/05/18 04:28 07/05/18 04:37 07/05/18 04:28 07/05/18 04:37 Exam: moderate distress from right sided chest pain - Assessment and Plan (1) Sepsis Current Visit: Yes Status: Acute Assessment and Plan: Patient came in febrile, tachycardic and with a leukocytosis of 15. chest xray shows evidence of right middle lobe pneumonia Likely secondary to aspiration pneumonia from alcohol abuse vs s/p EGD. Urine streptocococcus and legionella antigen negative. Blood cultures pending Continue on unasyn (2) Aspiration pneumonia Current Visit: Yes Status: Acute Assessment and Plan: Patient came in febrile, tachycardic and with a leukocytosis of 15. chest xray shows evidence of right middle lobe pneumonia Likely secondary to aspiration pneumonia from alcohol abuse vs s/p EGD. Continue unasyn . (3) Chest pain Current Visit: Yes Status: Acute Assessment and Plan: Likely pleuritc from pneumonia. CT chest and abdomen shows no evidence of free air or suggestion of esophageal perforation Gi has however been consulted in light of persistent right sided chest pain s/p endoscopy to r/o perforation. CXR showed no evidence of pneumomediastinum Pain likely secondary to esophagitis. Carafate has been added to regimen and pain control PRN (4) Hyponatremia Current Visit: Yes Status: Acute Assessment and Plan: Will start on IV fluids with normal saline (5) Alcohol abuse Current Visit: Yes Status: Acute Assessment and Plan: Consumes alcohol daily. Place on CIWA protocol and monitor for signs of withdrawal (6) Hypokalemia Current Visit: Yes Status: Acute Assessment and Plan: Replaced (7) DVT prophylaxis Current Visit: Yes Status: Acute Assessment and Plan: Heparin sc - Time Spent with Patient Total time spent is greater than 50% in coordination of care (as documented) at patient's floor/unit and/or counseling patient: Internal Medicine: Result - Labs CBC & Chem 7: 07/05/18 03:57 07/05/18 03:57 Labs: Short CBC 07/05/18 Range/Units 03:57 WBC 13.9 H (4.3-11.1) K/mcL Hgb 11.3 L (12.9-16.9) g/dL Hct 33.0 L (37.5-50.1) % Plt Count 304 (140-400) K/mcL Neutrophils # 10.3 H (1.6-8.9) K/mcL BMP 07/05/18 03:57 Sodium 130 L Potassium 3.2 L Chloride 97 L Carbon Dioxide 24 BUN 6 L Creatinine 0.56 L Glucose 84 Calcium 8.6 Urine 07/04/18 Range/Units 21:00 Urine Color Yellow (Yellow) Urine Clarity Clear (Clear) Urine pH 7.5 (5.0-8.0) pH Units Ur Specific Thurman 1.022 (1.010-1.025) Urine Protein Negative (Neg-Trace) mg/dL Urine Glucose (UA) Normal (Normal) mg/dL - ABG Interpretation ABG results: PT/INR, D-dimer PT 11.9 Seconds (9.4-12.1) 07/04/18 11:54 Consult Discharge Plan - Plan Referrals: Denise Anton MD [Primary Care Provider] - (1) Sepsis Qualifiers: Sepsis type: sepsis due to unspecified organism Qualified Code(s): A41.9 - Sepsis, unspecified organism (2) Aspiration pneumonia Qualifiers: Lung location: middle lobe of lung (3) Chest pain Qualifiers: Chest pain type: chest pain on breathing Qualified Code(s): R07.1 - Chest pain on breathing; R07.81 - Pleurodynia
[2018-07-05] MEDS ORDERED: *HR* LORazepam 2 MG/ML VIAL IVP PRN ×2 (08:17)
[2018-07-05] MEDS: OXYCODONE Oral CONC 10 MG/0.5 ML ORAL.SYG SL PRN ×2 (08:33→21:06)
[2018-07-05] MEDS ORDERED: DHA PO SCH (09:00)
[2018-07-05] MEDS ORDERED: EPA PO SCH (09:00)
[2018-07-05] MEDS ORDERED: Folic Acid 1 MG TABLET PO SCH (09:00)
[2018-07-05] MEDS ORDERED: FISH OIL PO SCH (09:00)
[2018-07-05] MEDS: Multivit/Ca/Min/Fe/FA 1 TAB TABLET PO SCH (10:02)
[2018-07-05] MEDS: NIFEdipine XL (24 HR) 30 MG TAB.ER.24 PO SCH ×2 (10:02→21:06)
[2018-07-05] MEDS: Potassium Chloride Elixir 20 MEQ/15 ML UDC PO SCH ×2 (10:02→12:39)
[2018-07-05] MEDS: *HR* OxyCODONE/APAP 7.5/325 TABLET PO PRN (10:03)
--- NOTE | 2018-07-05 11:57 | Gastroenterology Consult Note ---
<Med Shabazz Arias - Last Filed: 07/05/18 11:55> Date of Encounter: 07/05/18 Time of Encounter: 10:30 - Assessment and plan (1) Chest pain Current Visit: Yes Status: Acute Assessment and plan: Likely secondary to pneumonia. CT chest and abdomen shows no evidence of free air or suggestion of esophageal perforation but did show a right middle lobe pneumonia. EGD completed 07/01 with esophageal dilation, could have caused some esophagitis. Start Carafate and continue PPI. CXR this AM shows new right lower lung pulmonary opacity may represent atelectasis, pneumonia, aspiration, and/or pleural effusion, small right pleural effusion. Qualifiers: Chest pain type: chest pain on breathing Qualified Code(s): R07.1 - Chest pain on breathing; R07.81 - Pleurodynia (2) Pneumonia Current Visit: Yes Status: Acute Assessment and plan: Management per primary team. Qualifiers: Pneumonia type: due to unspecified organism Laterality: right Lung location: middle lobe of lung Qualified Code(s): J18.1 - Lobar pneumonia, unspecified organism - Time Spent With Patient Total time spent is greater than 50% in coordination of care (as documented) at patient's floor/unit and/or counseling patient: GI History of Present Illness - Data of Consult Patient: known to practice within the last 3 years Consult date: 07/05/18 Requesting Physician: Miles Mcintyre DO - Consult Narrative Reason for consult: chest pain, s/p endoscopy History of present illness: Mr. Stewart is a 68 year old male with PMHx of GERD, GI bleed, HLD, HTN, alcohol abuse who presented with c/o cough and right sided chest pain that started 06/30 and has worsened since his EGD on 07/01. EGD showed benign- appearing esophageal stenosis which was dilated. The right sided chest pain started after the procedure and has been getting progressively more severe over the last 24 hours. The pain is intermittent stabbing and radiating from the mid sternal area to the back. CT chest and abdomen shows no evidence of free air or suggestion of esophageal perforation but did show a right middle lobe pneumonia. Procedures: EGD 07/01/2018 Dr. Nunez: Benign-appearing esophageal stenosis-dilated , otherwise normal. Awaiting pathology. Colonoscopy 07/03/2016 Dr. Nunez: Diverticulosis, internal hemorrhoids, 6 mm tubular adenoma, repeat 5 years. EGD 01/21/2016 Dr. Nunez: Gastritis, dilation of entire esophagus. EGD 11/20/2015 Dr. Nunez: Benign-appearning esophageal stenosis-dilated, LA grade D reflux esophagitis, Duffy's esophagus. NSAIDs: None Anticoagulation: None Past Med Surg Social Fam HX - Past Medical History Medical history: GERD, GI bleed, hyperlipidemia, hypertension Additional medical history: Clark dx, BPH, chronic elbow/shoulder pain, hx of alcoholism pancreatitis, hx of colon polyps Psychiatric history: no psych history - Past Surgical History Surgical History: cholecystectomy, herniorrhaphy Additional surgical history: right foot as a child, bilateral inguinal hernia repair-2008, sinus surgery-2009, EDG-04/2011, colonscopy w/ polypectomy-2007, 2014, TURP-07/2014, PE tubes-05/2015 - Social History Smoking Status: Current every day smoker Smokeless Tobacco Status: No Alcohol use: heavy, recent Drug use: none - Family History Mother Living Status: Age at : 84 Cause of : DM, alzheimers - Gastrointestinal Gastrointestinal: Present: as per HPI - Constitutional Constitutional: as per HPI - EENT Eyes: as per HPI Ears: Present: as per HPI Nose, mouth and throat: Present: as per HPI - Cardiovascular Cardiovascular ROS: Present: as per HPI - Respiratory Respiratory IM: Present: as per HPI - Genitourinary Genitourinary: Absent: change in color, Urinary frequency - Neurological ROS Neurological GI: Present: as per HPI - Hematologic/Lymphatic Hematologic/Lymphatic pediatric: Present: as per HPI - Musculoskeletal Musculoskeletal ROS GI: Present: as per HPI - Integumentary Integumentary GI: Present: as per HPI - Psychiatric ROS Psychiatric GI: Present: as per HPI - Endocrine Endocrine IM: Present: as per HPI - Constitutional Vitals: Temp Pulse Resp BP Pulse Ox 98.1 F 97 18 132/73 97 07/05/18 11:15 07/05/18 11:15 07/05/18 11:47 07/05/18 11:15 07/05/18 11:47 General appearance: Present: cooperative, A&O X 3, no acute distress, answers questions appropriately - Head Head exam: Present: atraumatic, normocephalic - Eye Eye exam: Present: normal appearance, sclera anicteric - ENT ENT exam: Present: mucous membranes dry - Neck Neck exam general surgery: Present: normal inspection, trachea midline - Respiratory Respiratory exam: Present: rhonchi, wheezes. Absent: CTAB - Cardiovascular Cardiovascular exam: Present: RRR, +S1, +S2 - GI/Abdominal GI/Abdominal exam: Present: soft, no peritoneal signs. Absent: distended, firm , guarding, tenderness - Rectal Rectal exam: Present: deferred - Extremities Exam Extremities exam: Present: warm - Neurological Exam Neurological exam: Present: no focal deficits - Psychiatric Psychiatric exam: Present: normal affect, normal mood - Skin Skin exam: Present: dry, intact, normal color, warm Results - Labs CBC & Chem 7: 07/05/18 03:57 07/05/18 03:57 Labs: Last Result Calcium 8.6 mg/dL (8.6-10.3) 07/05/18 03:57 Troponin I 0.03 ng/mL (< 0.04) 07/04/18 11:54 Entire Visit Hgb 11.3 g/dL (12.9-16.9) L 07/05/18 03:57 Hct 33.0 % (37.5-50.1) L 07/05/18 03:57 PT 11.9 Seconds (9.4-12.1) 07/04/18 11:54 Total Bilirubin 0.8 mg/dL (0.3-1.0) 07/04/18 11:54 AST 15 Units/L (13-39) 07/04/18 11:54 ALT 12 Units/L (7-52) 07/04/18 11:54 Lipase 4 Units/L (11-82) L 07/04/18 11:54 - ABG ABG results: PT/INR, D-dimer PT 11.9 Seconds (9.4-12.1) 07/04/18 11:54 - Impressions Impressions Chest X-Ray 07/05/18 07:00 IMPRESSION: New right lower lung pulmonary opacity may represent atelectasis, pneumonia, aspiration, and/or pleural effusion. Small right pleural effusion. Recommend radiographic follow-up to complete resolution. No radiographic evidence of pneumothorax or pneumomediastinum. D/ / 07/05/2018 09:03:30 Adonis Mccarthy MD / Dipika Larry Interpreting Provider: Adonis Mccarthy MD Consult Discharge Plan - Plan Referrals: Denise Anton MD [Primary Care Provider] - <Denise Nunez - Last Filed: 07/05/18 18:21> Date of Encounter: 07/05/18 Time of Encounter: 14:00 - Time Spent With Patient Total time spent is greater than 50% in coordination of care (as documented) at patient's floor/unit and/or counseling patient: GI History of Present Illness - Data of Consult Requesting Physician: Miles Mcintyre DO - Consult Narrative History of present illness: Mr. Stewart is a 68 year old male - Constitutional Vitals: Temp Pulse Resp BP Pulse Ox 100.1 F H 108 20 126/72 92 07/05/18 17:17 07/05/18 17:17 07/05/18 17:17 07/05/18 17:17 07/05/18 17:17 Results - Labs CBC & Chem 7: 07/05/18 03:57 07/05/18 03:57 Labs: Last Result Calcium 8.6 mg/dL (8.6-10.3) 07/05/18 03:57 Troponin I 0.03 ng/mL (< 0.04) 07/04/18 11:54 Entire Visit Hgb 11.3 g/dL (12.9-16.9) L 07/05/18 03:57 Hct 33.0 % (37.5-50.1) L 07/05/18 03:57 PT 11.9 Seconds (9.4-12.1) 07/04/18 11:54 Total Bilirubin 0.8 mg/dL (0.3-1.0) 07/04/18 11:54 AST 15 Units/L (13-39) 07/04/18 11:54 ALT 12 Units/L (7-52) 07/04/18 11:54 Lipase 4 Units/L (11-82) L 07/04/18 11:54 - ABG ABG results: PT/INR, D-dimer PT 11.9 Seconds (9.4-12.1) 07/04/18 11:54 - Impressions Impressions Chest X-Ray 07/05/18 07:00 IMPRESSION: New right lower lung pulmonary opacity may represent atelectasis, pneumonia, aspiration, and/or pleural effusion. Small right pleural effusion. Recommend radiographic follow-up to complete resolution. No radiographic evidence of pneumothorax or pneumomediastinum. D/ / 07/05/2018 09:03:30 Adonis Mccarthy MD / Dipika Larry Interpreting Provider: Adonis Mccarthy MD - Attending Attestation I have personally performed a face to face evaluation on this patient. I have reviewed and agree with the care plan. History and Exam by me shows: Patient seen at the bedside denies any epigastric pain on examination epigastrium is benign. Assessment patient with the pneumonia. Patient is status post dilation last week for dysphagia and CT scan is showing some distal esophagus mild taking that could be post-dilation. Per patient he is swallowing fine. Recommendation: PPI and some oral Carafate for 2-4 weeks. Management of pneumonia as per primary team
[2018-07-05] MEDS: *HR* FentaNYL (PF) 100 MCG/2 ML VIAL IVP PRN ×2 (12:39→17:09)
[2018-07-05] MEDS: Thiamine (B-1) 100 MG, Folic Acid 1 MG, MVI, adult with vitamin K 10 ML in 0.9 % Sodi... IVPB SCH (17:03)
[2018-07-06] MEDS: Ampicillin/Sulbactam 3,000 MG in 0.9 % Sodium Chloride Mini Bag 100 ML IVPB SCH ×4 (02:33→20:47)
[2018-07-06] MEDS: Ipratropium/Albuterol Neb 3 ML IH SCH ×6 (03:39→23:05)
[2018-07-06] MEDS: OXYCODONE Oral CONC 10 MG/0.5 ML ORAL.SYG SL PRN (03:52)
[2018-07-06 07:51] LABS: Basophils % 0.3 %; Eosinophils # 0.2 K/mcL (0.0-0.6); Hematocrit 28.4 % (37.5-50.1); Immature Granulocytes % 0.3 % (0-4); Lymphocytes # 1.3 K/mcL (0.6-4.6); Lymphocytes % 9.1 %; Mean Corpuscular HGB Conc 35.2 g/dL (31.6-35.5); Mean Corpuscular Volume 93.7 fL (83.0-100.0); Mean Platelet Volume 9.8 fL (9.4-12.4); Monocytes # 1.1 K/mcL (0.0-1.3); Monocytes % 7.5 %; Platelet Count 277 K/mcL (140-400); Red Blood Count 3.03 M/mcL (4.19-5.50); Red Cell Distribution Width 12.3 % (11.5-14.5); Segmented Neutrophils % 81.8 %
[2018-07-06 08:08] LABS: BUN/Creatinine Ratio 13 (6-26); Blood Urea Nitrogen 7 mg/dL (8-23); Calcium 8.5 mg/dL (8.6-10.3); Carbon Dioxide 25 mEq/L (23-29); Chloride 94 mEq/L (98-107); Glucose 145 mg/dL (70-105); Magnesium 1.8 mg/dL (1.6-2.6); Osmolality,Calculated 267 (280-300); Phosphorous 2.4 mg/dL (2.7-4.5); Potassium 3.2 mEq/L (3.5-5.1); Sodium 128 mEq/L (136-145); eGFR For Non-African Americans > 60 (> 60)
[2018-07-06] MEDS: NIFEdipine XL (24 HR) 30 MG TAB.ER.24 PO SCH ×2 (08:31→20:49)
[2018-07-06] MEDS: Multivit/Ca/Min/Fe/FA 1 TAB TABLET PO SCH (08:31)
[2018-07-06] MEDS: *HR* OxyCODONE/APAP 7.5/325 TABLET PO PRN (08:48)
--- NOTE | 2018-07-06 09:09 | Internal Med Progress Note ---
Hospitalist Progress Note - Encounter Date of Encounter: 07/06/18 Time of Encounter: 09:07 - Subjective Interval History: Patient seen and evaluated at bedside, reports that he still does not think he is back to his baseline. Feels weak, continues to have productive cough. Denies chest pain, but report lower back and right shoulder pain. - Exam Vitals: Temp Pulse Resp BP Pulse Ox 99.8 F H 107 18 113/56 91 07/06/18 07:42 07/06/18 07:42 07/06/18 07:42 07/06/18 07:42 07/06/18 07:42 Exam: General: Alert and oriented 4. In no acute distress. Cardiovascular: RRR, Normal S1 & S2, no rubs, murmurs or gallops. No JVD. Lungs: Clear to auscultation bilaterally, no wheezes, rales or crackles. Abdomen: Obese, Soft, non-tender, no rigidity. NABS in all 4 quadrants. Extremities: No edema in the lower extremity bilaterally. Neurological:Normal cognition and motor skills. CN II-XII intact. Rest of the physical exam is non contributory - Assessment and Plan (1) Aspiration pneumonia Current Visit: Yes Status: Acute Assessment and Plan: CTA chest: IMPRESSION: 1. No acute vascular findings in the chest, abdomen, or pelvis. Specifically, no findings of central pulmonary embolism or aortic dissection. 2. Right middle lobe pneumonia with minimal involvement of the adjacent right lower lobe. This potentially could be related to aspiration given some retained material in the esophagus. 3. Circumferential wall thickening in the mid to distal thoracic esophagus potentially due to esophagitis. Please correlate with the report from the reported recent endoscopy. 4. Trace right pleural effusion. 5. Trace pelvic ascites, potentially reactive. 6. Mild to moderate bronchial wall thickening potentially due to reactive airways disease or bronchitis. Possible aspiration Pneumonia. Plan patient on ampicillin/sulbactam Will add levofloxacin 750mg/PO daily F/U blood culture final report for antibioitcs adjustment if needed Urine for atypical organism negative. Incentive spirometry (2) Chest pain Current Visit: Yes Status: Resolved Assessment and Plan: Chest pain presentation possible secondary to Esophagitis following EGD. EGD completed 07/01 with esophageal dilation, could have caused some esophagitis. Plan GI consulted recommended PPI and Sulcrafate (3) Hyponatremia Current Visit: Yes Status: Acute Assessment and Plan: Plan: Fluids restriction to 1.5 litters a day Will start patient on NS low dose at 50mls/hr for 24 hours (4) Alcohol abuse Current Visit: Yes Status: Acute Assessment and Plan: ON lorazepam PRN for DT like symptoms. (5) Sepsis Current Visit: Yes Status: Resolved Assessment and Plan: Sepsis picture on presentation resolving. Continue plan of care as per #1 problem (6) Hypokalemia Current Visit: Yes Status: Acute Assessment and Plan: Electrolyte replaced. (7) Hypertension Current Visit: Yes Status: Acute Assessment and Plan: BP well controlled. Patient on Nifedipine 30mg/PO BID. Continue current treatment. Will add low dose carvedilol. (8) Respiratory failure Current Visit: Yes Status: Acute Assessment and Plan: Possible secondary to pneumonia. CTA done r/o PE. Patient continues to require O2 by nasal canula. On 5 litters. Continue O2 by nasal cannula, titrate for O2Sat >92% Continue Nebs PRN. (9) DVT prophylaxis Current Visit: Yes Status: Acute Assessment and Plan: Patient with a Hx of GI bleed. No active signs of bleeding. Will add Heparin 5000 units BID for DVT prophylaxis. - Summary of Assessment and Plan Summary of Assessment and Plan: Patient to remain in the hospital to continue IV antibiotics for at least 24-48 more hours. - Time Spent with Patient Total time spent is greater than 50% in coordination of care (as documented) at patient's floor/unit and/or counseling patient: 25 - 35 minutes Plan of Care Discussed with: patient (the nurse.) Internal Medicine: Result - Labs CBC & Chem 7: 07/06/18 07:23 07/06/18 07:23 Labs: Short CBC 07/06/18 Range/Units 07:23 WBC 14.6 H (4.3-11.1) K/mcL Hgb 10.0 L (12.9-16.9) g/dL Hct 28.4 L (37.5-50.1) % Plt Count 277 (140-400) K/mcL Neutrophils # 12.0 H (1.6-8.9) K/mcL BMP 07/06/18 07:23 Sodium 128 L Potassium 3.2 L Chloride 94 L Carbon Dioxide 25 BUN 7 L Creatinine 0.53 L Glucose 145 H Calcium 8.5 L - ABG Interpretation ABG results: PT/INR, D-dimer PT 11.9 Seconds (9.4-12.1) 07/04/18 11:54 - Impressions Impressions Chest X-Ray 07/05/18 07:00 IMPRESSION: 1. New right lower lung pulmonary opacity may represent atelectasis, pneumonia, aspiration, and/or pleural effusion. Small right pleural effusion. 2. No radiographic evidence of pneumothorax or pneumomediastinum. RECOMMENDATION: Recommend radiographic follow-up to complete resolution. D/ / 07/05/2018 09:03:30 Adonis Mccarthy MD / Dipika Larry Interpreting Provider: Adonis Mccarthy MD Consult Discharge Plan - Plan Referrals: Denise Anton MD [Primary Care Provider] - (1) Aspiration pneumonia Qualifiers: Lung location: middle lobe of lung (2) Chest pain Qualifiers: Chest pain type: chest pain on breathing Qualified Code(s): R07.1 - Chest pain on breathing; R07.81 - Pleurodynia (5) Sepsis Qualifiers: Sepsis type: sepsis due to unspecified organism Qualified Code(s): A41.9 - Sepsis, unspecified organism (7) Hypertension Qualifiers: Hypertension type: unspecified Qualified Code(s): I10 - Essential (primary) hypertension (8) Respiratory failure Qualifiers: Chronicity: acute Respiratory failure complication: hypoxia Qualified Code(s ): J96.01 - Acute respiratory failure with hypoxia
[2018-07-06] MEDS: 0.9 % Sodium Chloride 1,000 ML IVC SCH (11:01)
[2018-07-06] MEDS: levoFLOXacin 750 MG TABLET PO SCH (11:02)
[2018-07-06] MEDS: Pantoprazole 40 MG VIAL IVP SCH (17:31)
[2018-07-06] MEDS: Thiamine (B-1) 100 MG, Folic Acid 1 MG, MVI, adult with vitamin K 10 ML in 0.9 % Sodi... IVPB SCH (17:31)
[2018-07-06] MEDS: *HR* FentaNYL (PF) 100 MCG/2 ML VIAL IVP PRN (17:42)
[2018-07-06] MEDS: *HR* Heparin 5,000 UNIT/ML VIAL SQ SCH (17:45)
[2018-07-06] MEDS: Sennosides/Docusate Sodium TABLET PO SCH (20:49)
[2018-07-07] MEDS: Ampicillin/Sulbactam 3,000 MG in 0.9 % Sodium Chloride Mini Bag 100 ML IVPB SCH ×4 (02:12→20:56)
[2018-07-07] MEDS: Ipratropium/Albuterol Neb 3 ML IH SCH ×6 (04:19→23:05)
[2018-07-07] MEDS: Pantoprazole 40 MG VIAL IVP SCH (05:27)
[2018-07-07] MEDS: 0.9 % Sodium Chloride 1,000 ML IVC SCH (05:28)
[2018-07-07] MEDS: *HR* Heparin 5,000 UNIT/ML VIAL SQ SCH ×2 (05:28→16:06)
[2018-07-07 07:12] LABS: Basophils % 0.2 %; Eosinophils # 0.1 K/mcL (0.0-0.6); Eosinophils % 0.8 %; Hematocrit 27.4 % (37.5-50.1); Hemoglobin 9.6 g/dL (12.9-16.9); Immature Granulocytes % 0.5 % (0-4); Lymphocytes # 1.3 K/mcL (0.6-4.6); Lymphocytes % 9.6 %; Mean Corpuscular Hemoglobin 32.7 pg (28.0-33.3); Mean Corpuscular Volume 93.2 fL (83.0-100.0); Mean Platelet Volume 10.5 fL (9.4-12.4); Monocytes # 1.1 K/mcL (0.0-1.3); Monocytes % 8.4 %; Neutrophils # 10.5 K/mcL (1.6-8.9); Platelet Count 171 K/mcL (140-400); Red Blood Count 2.94 M/mcL (4.19-5.50); Red Cell Distribution Width 12.3 % (11.5-14.5); Segmented Neutrophils % 80.5 %
[2018-07-07 07:27] LABS: Magnesium 1.8 mg/dL (1.6-2.6); Phosphorous 2.5 mg/dL (2.7-4.5)
[2018-07-07 07:29] LABS: BUN/Creatinine Ratio 12 (6-26); Blood Urea Nitrogen 6 mg/dL (8-23); Calcium 8.4 mg/dL (8.6-10.3); Carbon Dioxide 24 mEq/L (23-29); Chloride 96 mEq/L (98-107); Glucose 116 mg/dL (70-105); Osmolality,Calculated 263 (280-300); Potassium 3.5 mEq/L (3.5-5.1); Sodium 127 mEq/L (136-145); eGFR For Non-African Americans > 60 (> 60)
[2018-07-07] MEDS: NIFEdipine XL (24 HR) 30 MG TAB.ER.24 PO SCH ×2 (09:32→20:56)
[2018-07-07] MEDS: *HR* OxyCODONE/APAP 7.5/325 TABLET PO PRN ×2 (09:32→16:08)
[2018-07-07] MEDS: Thiamine (B-1) 100 MG TABLET PO SCH (09:32)
[2018-07-07] MEDS: Sennosides/Docusate Sodium TABLET PO SCH ×2 (09:33→20:56)
[2018-07-07] MEDS: levoFLOXacin 750 MG TABLET PO SCH (09:33)
[2018-07-07] MEDS: Folic Acid 1 MG TABLET PO SCH (09:33)
[2018-07-07] MEDS: Multivit/Ca/Min/Fe/FA 1 TAB TABLET PO SCH (09:33)
--- NOTE | 2018-07-07 11:15 | Internal Med Progress Note ---
Hospitalist Progress Note - Encounter Date of Encounter: 07/07/18 Time of Encounter: 11:13 - Subjective Interval History: Seen and evaluated and evaluated at bedside, patient reports that his breathing has improved, he feels less short of breath. Denies chest pain, nausea or vomiting. Denies tremors, intentional or resting. - Exam Vitals: Temp Pulse Resp BP Pulse Ox 98.3 F 99 18 119/67 89 07/07/18 07:30 07/07/18 07:30 07/07/18 11:02 07/07/18 07:30 07/07/18 11:02 Exam: General: Alert and oriented 4. In no acute distress. Cardiovascular: RRR, Normal S1 & S2, no rubs, murmurs or gallops. No JVD. Lungs: Clear to auscultation bilaterally, no wheezes, rales or crackles. Abdomen: Obese, Soft, non-tender, no rigidity. NABS in all 4 quadrants. Extremities: No edema in the lower extremity bilaterally. Neurological:Normal cognition and motor skills. CN II-XII intact. Rest of the physical exam is non contributory - Assessment and Plan (1) Respiratory failure Current Visit: Yes Status: Acute Assessment and Plan: Patient still on 5 litters of O2 by nasal cannula. a possible contributing factor for this patient respiratory symptoms could be in part to COPD? as patient has a long standing history of tobacco abuse, smokes about a pack per day for a "long" time. Continue Nebs Scheduled, titrate O2 to 2 litters. Will attempt to wean off Oxygen today. No steroids due to patient recent Hx of GI bleeding. (2) Aspiration pneumonia Current Visit: Yes Status: Acute Assessment and Plan: Reports that his breathing has significantly improved, but still not back to his baseline Plan To continue IV antibioitcs for 24 more hours Discontinue Levofloxacin as Atypical organism were negative Incentive spirometry (3) Chest pain Current Visit: Yes Status: Resolved Assessment and Plan: Possible secondary to esophagitis from EGD. GI recommended PPI plus scrafate. Change Pantoprazole to 40mg/PO daily. (4) Hyponatremia Current Visit: Yes Status: Acute Assessment and Plan: Possible secondary to SIADH due to Pneumonia?. No neurological abnormalities Plan Serum and Urine Osm Patient on NS@50mls/hr Continue with fluid restriction to 1.5 litters a day. (5) Alcohol abuse Current Visit: Yes Status: Acute Assessment and Plan: NO DT like symptoms. Patient on Lorazepam 2mg/IV Q4HR PRN for DT like symptoms. Started on carvedilol 12.5mg/PO BID (6) Hypertension Current Visit: Yes Status: Acute (7) DVT prophylaxis Current Visit: Yes Status: Acute Assessment and Plan: ON heparin 5000 units Q12HR SubQ for DVT prophylaxis. - Summary of Assessment and Plan Summary of Assessment and Plan: Patient to remain hospitalized for 24 more hours to wean off Oxygen. and continue antibiotics IV for 24 hours. Potential DC tomorrow. - Time Spent with Patient Total time spent is greater than 50% in coordination of care (as documented) at patient's floor/unit and/or counseling patient: 25 - 35 minutes Plan of Care Discussed with: patient (nurse and family.) Internal Medicine: Result - Labs CBC & Chem 7: 07/07/18 06:42 07/07/18 06:42 Labs: Short CBC 07/07/18 Range/Units 06:42 WBC 13.0 H (4.3-11.1) K/mcL Hgb 9.6 L (12.9-16.9) g/dL Hct 27.4 L (37.5-50.1) % Plt Count 171 (140-400) K/mcL Neutrophils # 10.5 H (1.6-8.9) K/mcL BMP 07/07/18 06:42 Sodium 127 L Potassium 3.5 Chloride 96 L Carbon Dioxide 24 BUN 6 L Creatinine 0.49 L Glucose 116 H Calcium 8.4 L - ABG Interpretation ABG results: PT/INR, D-dimer PT 11.9 Seconds (9.4-12.1) 07/04/18 11:54 Consult Discharge Plan - Plan Referrals: Denise Anton MD [Primary Care Provider] - (1) Respiratory failure Qualifiers: Chronicity: acute Respiratory failure complication: hypoxia Qualified Code(s ): J96.01 - Acute respiratory failure with hypoxia (2) Aspiration pneumonia Qualifiers: Lung location: middle lobe of lung (3) Chest pain Qualifiers: Chest pain type: chest pain on breathing Qualified Code(s): R07.1 - Chest pain on breathing; R07.81 - Pleurodynia (6) Hypertension Qualifiers: Hypertension type: unspecified Qualified Code(s): I10 - Essential (primary) hypertension
[2018-07-08] MEDS: *HR* OxyCODONE/APAP 7.5/325 TABLET PO PRN ×3 (00:27→14:34)
[2018-07-08] MEDS ORDERED: GuaiFENesin Liq 200 MG/10 ML UDC PO PRN (00:39)
[2018-07-08] MEDS ORDERED: Benzonatate 100 MG CAPSULE PO PRN (00:46)
[2018-07-08] MEDS: Ampicillin/Sulbactam 3,000 MG in 0.9 % Sodium Chloride Mini Bag 100 ML IVPB SCH ×2 (00:58→08:00)
[2018-07-08] MEDS: Ipratropium/Albuterol Neb 3 ML IH SCH ×3 (03:13→11:29)
[2018-07-08] MEDS: *HR* Heparin 5,000 UNIT/ML VIAL SQ SCH (05:08)
[2018-07-08 05:25] LABS: Basophils % 0.2 %; Eosinophils # 0.2 K/mcL (0.0-0.6); Eosinophils % 1.6 %; Hematocrit 28.1 % (37.5-50.1); Hemoglobin 9.8 g/dL (12.9-16.9); Immature Granulocytes % 0.5 % (0-4); Lymphocytes # 1.9 K/mcL (0.6-4.6); Lymphocytes % 14.7 %; Mean Corpuscular HGB Conc 34.9 g/dL (31.6-35.5); Mean Corpuscular Hemoglobin 32.9 pg (28.0-33.3); Mean Corpuscular Volume 94.3 fL (83.0-100.0); Mean Platelet Volume 10.5 fL (9.4-12.4); Monocytes # 1.1 K/mcL (0.0-1.3); Monocytes % 8.2 %; Neutrophils # 9.7 K/mcL (1.6-8.9); Platelet Count 188 K/mcL (140-400); Red Blood Count 2.98 M/mcL (4.19-5.50); Red Cell Distribution Width 12.6 % (11.5-14.5); Segmented Neutrophils % 74.8 %
[2018-07-08 05:36] LABS: Magnesium 1.8 mg/dL (1.6-2.6); Phosphorous 3.9 mg/dL (2.7-4.5)
[2018-07-08] MEDS: Multivit/Ca/Min/Fe/FA 1 TAB TABLET PO SCH (07:58)
[2018-07-08] MEDS: Folic Acid 1 MG TABLET PO SCH (07:58)
[2018-07-08] MEDS: Thiamine (B-1) 100 MG TABLET PO SCH (07:58)
[2018-07-08] MEDS: NIFEdipine XL (24 HR) 30 MG TAB.ER.24 PO SCH (07:58)
[2018-07-08] MEDS: Sennosides/Docusate Sodium TABLET PO SCH (07:59)
[2018-07-08] MEDS: 0.9 % Sodium Chloride 1,000 ML IVC SCH (08:00)
--- NOTE | 2018-07-08 09:11 | Electrocardiograph Report ---
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
--- NOTE | 2018-07-08 09:13 | Electrocardiograph Report ---
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
--- NOTE | 2018-07-08 09:52 | Discharge Summary ---
- NOTES TO OUTPATIENT PROVIDER Notes to Outpatient Provider: Follow with your PCP within a week and get a BMP to follow your sodium level. Orders not resulted at time of discharge: Pending orders 07/09/18 04:00 CBC [Complete Blood Count] [HEME] AM 0400 Magnesium AM 0400 Phosphorous AM 0400 07/10/18 04:00 CBC [Complete Blood Count] [HEME] AM 0400 Magnesium AM 0400 Phosphorous AM 0400 07/11/18 04:00 CBC [Complete Blood Count] [HEME] AM 0400 Magnesium AM 0400 Phosphorous AM 0400 Date of Encounter: 07/08/18 Time of Encounter: 09:43 - Discharge Diagnosis (1) Aspiration pneumonia Priority: Primary Status: Acute Qualifiers: Lung location: middle lobe of lung Qualified Code(s): J69.0 - Pneumonitis due to inhalation of food and vomit (2) Respiratory failure Priority: Secondary Status: Resolved Assessment and Plan: Respiratory failure with Hypoxia requiring High flow O2, subsequently 5 litters of O2 by nasal cannula and now 2 litters of O2 by nasal cannula. Qualifiers: Chronicity: acute Respiratory failure complication: hypoxia Qualified Code(s): J96.01 - Acute respiratory failure with hypoxia (3) Chest pain Priority: Secondary Status: Resolved Qualifiers: Chest pain type: chest pain on breathing Qualified Code(s): R07.1 - Chest pain on breathing; R07.81 - Pleurodynia (4) Hyponatremia Priority: Secondary Status: Acute Assessment and Plan: Patient with no neurological manifestation of hyponatremia. (5) Alcohol abuse Priority: Secondary Status: Chronic (6) Hypertension Priority: Secondary Status: Chronic Qualifiers: Hypertension type: unspecified Qualified Code(s): I10 - Essential (primary ) hypertension (7) DVT prophylaxis Priority: Secondary Status: Acute Hospital course: Mr. Stewart is a 68 year old male pmh of alcohol abuse, GERD, hyperlipidemia, hypertension presenting with complaints of coughin since last week thursday which has gotten worse and is accompanied with right sided chest pain. As part of the work up a CTA chest done right middle lobe pneumonia and no evidence of free air in the mediastinum. Abd/Pelvic CT done No acute vascular findings in the chest, abdomen, or pelvis. Specifically, no findings of central pulmonary embolism or aortic dissection. 2. Right middle lobe pneumonia with minimal involvement of the adjacent right lower lobe. This potentially could be related to aspiration given some retained material in the esophagus. GI consulted as patient had a recent EGD due to GI bleeding: suggested that his chest pain was most likely due to esophagitis from the procedure, patient to continue PPI plus sucralfate. Ischemic work up negative. For the pneumonia patient was treated with IV antibiotics, transition to PO on DC. Patient found to be hyponatremic without neurological symptoms, possible due to pneumonia, recommended to follow up with his PCP anne-marie a week. Patient is hemodynamycally stable to be DC home and continue PO antibiotics to complete antibiotics coverage. - Time Spent with Patient Total time spent providing and/or coordinating discharge services: Less than 30 minutes - Discharge Medications Prescriptions: RX: Carvedilol [Coreg] 12.5 mg PO BIDWM 30 Days #60 tablet RX: Clindamycin HCl 600 mg PO BID 5 Days #10 capsule RX: GuaiFENesin ER [Mucinex] 600 mg PO BID 30 Days #60 tbbp.12hr RX: Sucralfate [Carafate] 1 gm PO TIDAC 30 Days #90 udc Home Medications: RX: Fish Oil/Dha/Epa [Fish Oil 1,200 mg Fish Oil] 1 cap PO DAILY 09/11/17 [ History] RX: Fluticasone Propionate Nasal [Flonase] 1 spr NS DAILY PRN 09/11/17 [History] RX: Folic Acid 1 mg PO DAILY 09/11/17 [History] RX: Loperamide [Imodium] 2 cap PO QID PRN 09/11/17 [History] RX: Loratadine [Allergy Relief] 10 mg PO DAILY 09/11/17 [History] RX: Multivitamin [One Daily Essential] 1 tab PO DAILY 09/11/17 [History] RX: NIFEdipine [Nifedipine ER] 30 mg PO BID 09/11/17 [History] RX: OxyCODONE/APAP 7.5/325 [Percocet 7.5/325 MG] 1 each PO Q6HR PRN 09/11/17 [ History] RX: Pantoprazole Sodium [Protonix] 80 mg PO DAILY 04/06/18 [History] RX: Carvedilol [Coreg] 12.5 mg PO BIDWM 30 Days #60 tablet 07/08/18 [Rx] RX: Clindamycin HCl 600 mg PO BID 5 Days #10 capsule 07/08/18 [Rx] RX: GuaiFENesin ER [Mucinex] 600 mg PO BID 30 Days #60 tbbp.12hr 07/08/18 [Rx] RX: Sucralfate [Carafate] 1 gm PO TIDAC 30 Days #90 udc 07/08/18 [Rx] Allergies/Adverse Reactions: 3 Allergy/AdvReac Type Severity Reaction Status Date / Time Varenicline [From Chantix] Allergy Mild Itching Verified 04/06/18 10:30 cephalexin [From Keflex] AdvReac Mild Diarrhea Verified 04/06/18 10:30 Sawartm-Yeq-Qlj Reductase AdvReac Mild Nausea Verified 04/06/18 10:30 Inhibitor [Statins] Date of admission: 07/04/18 15:02 Primary care physician: Denise Anton Consults: 07/04/18 15:50 Consult to Gastroenterology [CONS] Routine Consulting Provider: Gastroenterology Mimi Reason for Consult: severe chest pain s/p endoscopy Call Completed: Yes 07/04/18 23:38 Consult to Respiratory Therapy [CONS] Routine Reason for Consult: Add flutter valve to breathing txs Call Completed: Yes - Constitutional Vitals: Temp Pulse Resp BP Pulse Ox 99.5 F 89 17 117/67 89 07/08/18 07:12 07/08/18 07:12 07/08/18 07:27 07/08/18 07:12 07/08/18 07:27 Exam: General: Alert and oriented 4. In no acute distress. Cardiovascular: RRR, Normal S1 & S2, no rubs, murmurs or gallops. No JVD. Lungs: Clear to auscultation bilaterally, no wheezes, rales or crackles. Abdomen: Obese, Soft, non-tender, no rigidity. NABS in all 4 quadrants. Extremities: No edema in the lower extremity bilaterally. Neurological: Normal cognition. CN II-XII intact. Rest of the physical exam is non contributory - Patient Status Disposition: Home, Self-Care Condition: Good Functional capacity at discharge: independent ambulation Overall status at discharge: patient is progressing back to baseline - Discharge Instructions Follow Up With: Denise Anton MD [Primary Care Provider] - 07/14/18 9:30 am (PLease follow up as schedule...) - Diet and Activity Activity: resume usual activities as tolerated Diet: advance to your usual diet
[2018-07-08 10:56] VITALS: BP 110/67
== END 2018-07-08 14:48 | disposition home or self-care (01) | DRG 871 ==
LOC: 2ANU 11:32 → EMEROOARM 11:32 → SUATTDRO 15:02 → 2ANU 15:30
PROVIDERS: ADMIT Internal Medicine; ATTEND Internal Medicine

== ENCOUNTER 2020-01-01 15:01 | Observation (INO) ==
[2020-01-01 15:34] LABS: Basophils % 0.2 %; Eosinophils % 0.3 %; Hematocrit 42.2 % (37.5-50.1); Hemoglobin 14.7 g/dL (12.9-16.9); Immature Granulocytes % 0.6 % (0-4); Lymphocytes # 1.9 K/mcL (0.6-4.6); Lymphocytes % 18.4 %; Mean Corpuscular HGB Conc 34.8 g/dL (31.6-35.5); Mean Corpuscular Hemoglobin 32.6 pg (28.0-33.3); Mean Corpuscular Volume 93.6 fL (83.0-100.0); Mean Platelet Volume 8.6 fL (9.4-12.4); Monocytes # 0.7 K/mcL (0.0-1.3); Monocytes % 6.6 %; Neutrophils # 7.7 K/mcL (1.6-8.9); Platelet Count 334 K/mcL (140-400); Red Blood Count 4.51 M/mcL (4.19-5.50); Red Cell Distribution Width 12.9 % (11.5-14.5); Segmented Neutrophils % 73.9 %; White Blood Count 10.4 K/mcL (4.3-11.1)
[2020-01-01 15:40] LABS: INR 0.9; Prothrombin Time 9.7 Seconds (9.4-12.1)
[2020-01-01 15:44] LABS: Activated Partial Thrombo Time 26.5 Seconds (26.0-36.0)
[2020-01-01] MEDS ORDERED: Aspirin 325 MG TABLET PO ONE (15:46)
[2020-01-01] MEDS ORDERED: Nitroglycerin 0.4 MG TAB.SUBL SL PRN (15:46)
[2020-01-01 15:55] LABS: BUN/Creatinine Ratio 15 (6-26); Blood Urea Nitrogen 10 mg/dL (8-23); Calcium 9.9 mg/dL (8.6-10.3); Carbon Dioxide 23 mEq/L (23-29); Chloride 94 mEq/L (98-107); Glucose 124 mg/dL (70-105); Osmolality,Calculated 264 (280-300); Potassium 3.6 mEq/L (3.5-5.1); Sodium 127 mEq/L (136-145); Troponin I < 0.03 ng/mL (< 0.04); eGFR For African Americans > 60 (> 60); eGFR For Non-African Americans > 60 (> 60)
[2020-01-01] MEDS ORDERED: *HR* OxyCODONE/APAP 10/325 TABLET PO ONE (15:58)
[2020-01-01 16:48] LABS: Bilirubin,Urine Negative (Negative); Blood,Urine Negative (Negative); Clarity,Urine Clear (Clear); Color,Urine Yellow (Yellow); Glucose,Urine (UA) Normal (Normal); Ketones,Urine Negative (Negative); Leukocyte Esterase,Urine Negative (Negative); Nitrite,Urine Negative (Negative); Protein,Urine Negative (Neg-Trace); Urobilinogen,Urine Normal (Normal)
[2020-01-01] MEDS ORDERED: *HR* LORazepam 2 MG/ML VIAL IVP PRN ×3 (18:42)
[2020-01-01] MEDS ORDERED: *HR* HYDROmorphone (PF) 1 MG/ML SYRINGE IVP ONE (20:59)
[2020-01-01] MEDS ORDERED: traZODone 50 MG TABLET PO ONE (23:32)
[2020-01-02] MEDS: *HR* OxyCODONE/APAP 10/325 TABLET PO PRN ×2 (00:56→10:30)
[2020-01-02 04:26] LABS: Basophils % 0.3 %; Eosinophils # 0.1 K/mcL (0.0-0.6); Eosinophils % 0.9 %; Hematocrit 39.4 % (37.5-50.1); Hemoglobin 13.8 g/dL (12.9-16.9); Immature Granulocytes % 0.5 % (0-4); Lymphocytes # 3.6 K/mcL (0.6-4.6); Mean Corpuscular Hemoglobin 33.5 pg (28.0-33.3); Mean Corpuscular Volume 95.6 fL (83.0-100.0); Mean Platelet Volume 8.7 fL (9.4-12.4); Monocytes # 0.9 K/mcL (0.0-1.3); Monocytes % 8.4 %; Platelet Count 299 K/mcL (140-400); Red Blood Count 4.12 M/mcL (4.19-5.50); Red Cell Distribution Width 12.8 % (11.5-14.5); Segmented Neutrophils % 55.9 %; White Blood Count 10.6 K/mcL (4.3-11.1)
[2020-01-02 04:29] LABS: INR 0.9; Prothrombin Time 10.5 Seconds (9.4-12.1)
[2020-01-02 04:46] LABS: Alanine Aminotransferase 29 Units/L (7-52); Albumin 4.1 g/dL (3.5-5.7); Alkaline Phosphatase 47 Units/L (34-104); Aspartate Amino Transferase 15 Units/L (13-39); BUN/Creatinine Ratio 15 (6-26); Bilirubin,Total 0.5 mg/dL (0.3-1.0); Blood Urea Nitrogen 10 mg/dL (8-23); Calcium 9.2 mg/dL (8.6-10.3); Carbon Dioxide 24 mEq/L (23-29); Chloride 99 mEq/L (98-107); Globulin 2.1 g/dL (2.4-3.5); Glucose 95 mg/dL (70-105); Magnesium 1.8 mg/dL (1.6-2.6); Osmolality,Calculated 273 (280-300); Potassium 3.5 mEq/L (3.5-5.1); Sodium 132 mEq/L (136-145); Total Protein 6.2 g/dL (6.4-8.9); eGFR For African Americans > 60 (> 60); eGFR For Non-African Americans > 60 (> 60)
[2020-01-02] MEDS ORDERED: *HR* HYDROmorphone 2 MG/ML SYRINGE IVP ONE (05:05)
[2020-01-02] MEDS ORDERED: *HR* Heparin 5,000 UNIT/ML VIAL SQ SCH (06:00)
[2020-01-02] MEDS ORDERED: Regadenoson 0.4 MG/5 ML SYRINGE IVP ONE (08:22)
[2020-01-02] MEDS ORDERED: Folic Acid 1 MG TABLET PO SCH (09:00)
[2020-01-02] MEDS ORDERED: Thiamine (B-1) 100 MG TABLET PO SCH (09:00)
[2020-01-02] MEDS ORDERED: Vitamin B Complex/Vit C/Vit E 1 EACH TABLET PO SCH (09:00)
[2020-01-02] MEDS ORDERED: Aspirin 81 MG TAB.CHEW PO SCH (09:00)
[2020-01-02] MEDS ORDERED: NIFEdipine XL (24 HR) 30 MG TAB.ER.24 PO SCH ×2 (11:18→21:00)
[2020-01-02 13:19] VITALS: BP 130/78
[2020-01-02] MEDS ORDERED: Fluticasone Propionate Nasal 50 MCG/SPRAY BOTTLE NS SCH (21:00)
== END 2020-01-02 13:26 | disposition home or self-care (01) ==
LOC: EMEROOARM 15:01 → 3BNU 15:01 → SUATTDRO 17:36 → 3BNU 18:08
PROVIDERS: ADMIT Family Medicine; ATTEND Internal Medicine